=== PATIENT | male | born 1990 | race Asian ===

== ENCOUNTER 2020-07-27 13:32 | Emergency (ER) | payer OTHER ==
[~2020-07-27] VITALS: Ht 188 cm; Wt 81.6 kg
--- NOTE | 2020-07-27 13:44 | NUR ---
PATIENT WAS MSE BY DR ROCKWELL IN ROOM 04B.
[2020-07-27] MEDS ORDERED: OXYCODONE/APAP 5-325 MG TABLET PO ONE (13:45)
[2020-07-27] MEDS ORDERED: SULFAMETH/TRIMETH 800/160 MG TABLET PO ONE (13:45)
[2020-07-27] MEDS ORDERED: SULFAMETH/TRIMETH 800/160 MG TABLET ONE (13:54)
[2020-07-27] MEDS ORDERED: OXYCODONE/APAP 5-325 MG TABLET ONE (13:54)
[2020-07-27 14:02] VITALS: BP 119/75
== END 2020-07-27 14:04 | disposition home or self-care (01) ==
LOC: ER 13:35
DX: L02.01 Cutaneous abscess of face (principal)
CPT/HCPCS: A4663

== ENCOUNTER 2021-04-25 17:49 | Emergency (ER) | payer OTHER ==
[~2021-04-25] VITALS: Ht 188 cm; Wt 86.2 kg
[2021-04-25] MEDS ORDERED: DEXT10TA7 PO (17:57)
[2021-04-25] MEDS ORDERED: MORPHINE SULFATE 4 MG/1 ML DISP.SYRIN IV ONE (18:15)
[2021-04-25 18:18] LABS: HEMATOCRIT 44.2 % (36.7-47.1); MEAN CORPUSCULAR HEMOGLOBIN 30.5 uug (23.8-33.4); MEAN CORPUSCULAR VOLUME 89.2 fL (73.0-96.2); PLATELET COUNT (AUTO) 276 K/uL (152-348)
[2021-04-25] MEDS ORDERED: IV NORMAL SALINE 250 ML IV ONE (18:21)
[2021-04-25] MEDS ORDERED: SWABABLE VALVE TRANSFER SET EA MC ONE (18:21)
[2021-04-25] MEDS ORDERED: IOHEXOL 300MG/ML 100 ML INFUS..BTL ONE (18:21)
[2021-04-25] MEDS ORDERED: MORPHINE SULFATE 4 MG/1 ML DISP.SYRIN ONE (18:22)
[2021-04-25 18:29] LABS: CREATININE 1.2 mg/dL (0.6-1.3); POTASSIUM 3.6 mmol/L (3.5-5.1)
[2021-04-25 18:33] LABS: *BILIRUBIN,URIN NEGATIVE (NEGATIVE); *BLOOD, URINE NEGATIVE (NEGATIVE); *CLARITY,URINE CLEAR (CLEAR); *COLOR,URINE YELLOW (YELLOW); *KETONES,URINE NEGATIVE (NEGATIVE); *UROBILINOGEN,URINE 0.2 E.U./dl (NORMAL); LEUKOCYTE ESTERASE ,URINE NEGATIVE (NEGATIVE); NITRITE, URINE NEGATIVE (NEGATIVE); PH,URINE 5.5 (5.0-8.0); UGLUCOSE NEGATIVE (NEGATIVE)
[2021-04-25 18:34] LABS: BILIRUBIN,TOTAL 0.4 mg/dL (0.2-1.0); TOTAL PROTEIN, SERUM 7.8 g/dL (6.4-8.2)
--- NOTE | 2021-04-25 18:47 | NUR ---
Pt denies any adverse event from medication administration. States improvement in pain. Pt taken for CT scan via cely by [employer].
--- NOTE | 2021-04-25 19:03 | NUR ---
Hand-off report given to DAVID Arauz
--- NOTE | 2021-04-25 19:05 | NUR ---
Pt back from CT
[2021-04-25] MEDS ORDERED: ONDANSETRON 4 MG/2 ML VIAL ONE (19:26)
[2021-04-25] MEDS ORDERED: HYDROMORPHONE 1 MG/1 ML DISP.SYRIN ONE (19:26)
[2021-04-25] MEDS ORDERED: HYDROMORPHONE 1 MG/1 ML DISP.SYRIN IV ONE (19:30)
[2021-04-25] MEDS ORDERED: ONDANSETRON 4 MG/2 ML VIAL IV ONE (19:30)
[2021-04-25] MEDS ORDERED: HYDR-4209 PO (19:47)
[2021-04-25] MEDS ORDERED: AMOX-430 PO (19:47)
[2021-04-25] MEDS ORDERED: ONDA4TAB5 PO (19:47)
[2021-04-25] MEDS ORDERED: PIPERACILLIN/TAZOBACTAM/D5W 50 ML IV ONE (19:58)
[2021-04-25] MEDS ORDERED: PIPERACILLIN SODIUM/TAZOBACTAM 3.375 G in IV DEXTROSE 5% 50 ML IV ONE (20:00)
--- NOTE | 2021-04-25 20:31 | NUR ---
IV removed. Catheter intact and site benign. Pressure and 4x4 gauze applied to site. No bleeding noted.
--- NOTE | 2021-04-25 20:32 | NUR ---
Patient discharged to home in stable condition. Written and verbal after care instructions given. Patient verbalizes understanding of instructions. Stressed follow up or return to ER for worsening s/s.
[2021-04-25 20:34] VITALS: BP 125/72
== END 2021-04-25 20:34 | disposition home or self-care (01) ==
LOC: ER 17:51
DX: R10.9 Unspecified abdominal pain (principal); R94.8 Abnormal results of function studies of other organs and systems; Z88.2 Allergy status to sulfonamides
CPT/HCPCS: 36415; 74177; 80053; 81003; 83605; 83690; 85025; 85610; 96365; 96375; 99285; J1170; J2270; J2405; J2543; Q9967; A4663; J7050